=== PATIENT | male | born 1945 | race Caucasian/White ===

== ENCOUNTER 2017-08-08 02:38 | Inpatient (IN) | payer OTHER ==
[~2017-08-08] VITALS: Ht 172.7 cm; Wt 88.5 kg
[2017-08-08 03:16] LABS: ABSOLUTE BASOPHIL COUNT 0 /CUMM (0.0-0.2); ABSOLUTE EOSINOPHIL COUNT 0 /CUMM (0.0-0.7); ABSOLUTE GRANULOCYTE CT 14.6 /CUMM (1.4-6.5); ABSOLUTE LYMPH COUNT 1.1 /CUMM (1.2-3.4); BASOPHIL % 0.2 % (0.0-2.0); EOSINOPHIL % 0.1 % (0-5); HEMATOCRIT 41.5 % (42-52); MEAN CORPUSCULAR HGB 32.5 PG (27.0-31.0); MEAN CORPUSCULAR VOLUME 95.3 FL (80.0-94.0); MEAN PLATELET VOLUME 7.6 FL (7.4-10.4); PLATELET COUNT 194 /CUMM (130-400); RBC DISTRIBUTION WIDTH 13.4 % (11.5-14.5); RED BLOOD CELL CT 4.36 /CUMM (4.70-6.10); WHITE BLOOD CELL COUNT 16.8 /CUMM (4.8-10.8)
[2017-08-08 03:18] LABS: GRANULOCYTE % 87.2 % (42.2-75.2)
[2017-08-08] MEDS ORDERED: LISINOPRIL20 M1 PO (03:19)
[2017-08-08] MEDS ORDERED: CRESTOR20 M2 PO (03:20)
--- NOTE | 2017-08-08 03:53 | RADIOLOGY REPORT ---
EXAMINATION: XR CHEST CLINICAL INFORMATION: Shaking chills, fever, cough COMPARISON: 01/22/2014 TECHNIQUE: 2 views of the chest were obtained. FINDINGS: The lungs are clear with no focal consolidation. No evidence of pneumothorax, pulmonary edema, or pleural effusions. The cardiomediastinal silhouette is unremarkable. No acute osseous findings. IMPRESSION: No acute cardiopulmonary findings.
--- NOTE | 2017-08-08 04:09 | ED GI/GU/ABDOMINAL COMPLAINT ---
History of Present Illness General Chief Complaint: General Adult Stated Complaint: BIBA, FEVER, DIARRHEA Source: patient, old records, friend Exam Limitations: no limitations Vital Signs & Intake/Output Vital Signs & Intake/Output Vital Signs Date Time Temp Pulse Resp B/P B/P Pulse O2 O2 Flow FiO2 Mean Ox Delivery Rate 08/08 0529 98.1 92 16 111/63 97 Room Air Room Air 08/08 0427 84 90/52 08/08 0346 82/50 08/08 0251 98.4 86 18 88/40 94 Allergies Coded Allergies: NO KNOWN ALLERGIES (03/05/17) Reconcile Medications Lisinopril 20 MG TABLET 1 TAB PO DAILY HTN (Reported) Rosuvastatin Calcium (Crestor) 20 MG TABLET 1 TAB PO DAILY CHOLESTEROL ( Reported) Triage Note: 72YO MALE TO [facility] VIA AMB FROM HOME W/CO FEVER, CHILLS DIARRHEA LAST FEW DAYS. RECENTLY TRAVELED TO [place], RETD HOME ON 07/22, DXED W/BRONCHITIS, PLACED ON AMOXICILLIN AND AFTER TAKING IT FOR 5 DAYS DIARRHEA BEGAN. Triage Nurses Notes Reviewed? yes Onset: Last week Duration: day(s):, constant, continues in ED, getting worse Timing: recent history Quality/Severity: aching, moderate, vomiting Location: generalized abdomen Radiation: no radiation Activities at Onset: rest Prior Abdominal Problems: none Past Sexual History: Unobtainable at this time Modifying Factors: Worsens With: eating. Associated Symptoms: abdominal pain, diarrhea, fever/chills, loss of appetite, nausea/vomiting HPI: About 2 weeks prior to admission patient returned from trip from [place] with bronchitis requiring antibiotics. He was prescribed Augmentin and developed diarrhea. Antibiotic was changed to amoxicillin. 2 days prior to admission he developed progressive loose watery stool anorexia and fatigue. Prior to admission he had shaking chills fever continued loose watery stool nausea anorexia and fatigue. There's been no chest pain cough shortness of breath headache dysuria rash bleeding. Past History Travel History Traveled to [place] past 21 day No Medical History Any Pertinent Medical History? see below for history Neurological: NONE EENT: NONE Cardiovascular: hypertension, hyperlipidemia Respiratory: NONE Gastrointestinal: NONE Hepatic: NONE Renal: NONE Musculoskeletal: NONE Psychiatric: NONE Endocrine: NONE Surgical History Surgical History: non-contributory Psychosocial History What is your primary language Bulgarian Tobacco Use: Never used Family History Hx Contributory? No Review of Systems Review of Systems Constitutional: Reports: see HPI, chills, fever, malaise, weakness. EENTM: Reports: no symptoms. Respiratory: Reports: no symptoms. Cardiovascular: Reports: no symptoms. GI: Reports: see HPI, abdominal pain, diarrhea, nausea. Genitourinary: Reports: no symptoms. Musculoskeletal: Reports: no symptoms. Skin: Reports: no symptoms. Neurological/Psychological: Reports: no symptoms. Hematologic/Endocrine: Reports: no symptoms. Immunologic/Allergic: Reports: no symptoms. All Other Systems: Reviewed and Negative Physical Exam Physical Exam General Appearance: well developed/nourished, alert, awake, anxious, severe distress Head: atraumatic, normal appearance Eyes: Bilateral: normal appearance, PERRL, EOMI, normal inspection. Ears, Nose, Throat, Mouth: dry mucous membranes Neck: normal inspection, supple, full range of motion, normal alignment Respiratory: chest non-tender, no respiratory distress, quiet respiration, rales Cardiovascular: regular rate/rhythm, normal peripheral pulses, tachycardia, norml femoral pulses equa Peripheral Pulses: 4+ carotid (R), 4+ carotid (L) Gastrointestinal: soft, non-tender, no organomegaly, abnormal bowel sounds Male Genitals: normal genitalia Back: normal inspection, normal range of motion, no vertebral tenderness Extremities: normal range of motion, no ligament instability Neurologic/Psych: no motor/sensory deficits, awake, alert, oriented x 3, normal gait, 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 No Sepsis Present: No Sepsis Focused Exam Completed? No Progress Differential Diagnosis: biliary colic, diverticulitis, gastritis, UTI/pyelo Plan of Care: Orders Procedure Date/time Status MAGNESIUM 08/09 0600 Active CBC WITHOUT DIFFERENTIAL 08/09 0600 Active CALCIUM 08/09 0600 Active BASIC ELECTROLYTES PLUS BUN&CR 08/09 0600 Active ALBUMIN 08/09 0600 Active Full Liquid Diet 08/08 B Active Add-on Test (ER Only) 08/08 0611 Active Add-on Test (ER Only) 08/08 0528 Active Pathway - chart 08/08 0503 Active House Staff 08/08 0503 Active Code Status 08/08 0503 Active Intake & Output 08/08 0443 Active Patient Data 08/08 0434 Active OXYGEN SETUP (GEN) 08/08 0428 Active Saline Lock 08/08 0428 Active Admit to inpatient 08/08 0428 Active Vital Signs 08/09 427 Active Activity/Ambulation 08/09 427 Active Code Status 08/09 427 Complete STOOL: R/O YERSINIA 08/08 0300 Active STOOL:R/O VIBRIO 08/08 0300 Active CULTURE,STOOL 08/08 0300 Active C.DIFFICILE 08/08 0300 Active BLOOD CULTURE 08/08 0300 Active URINALYSIS 08/08 0300 Complete PHOSPHORUS 08/08 0300 Complete MAGNESIUM 08/08 0300 Complete LACTIC ACID 08/08 0300 Complete COMPREHENSIVE METABOLIC PANEL 08/08 0300 Complete CBC WITHOUT DIFFERENTIAL 08/08 0300 Complete EKG 08/08 0252 Active VTE Mechanical Prophylaxis 08/08 UNK Active Current Medications Sig/Stefano Start time Last Medication Dose Stop Time Status Admin Metronidazole 500 MG Q8H 08/08 1300 AC (Flagyl) N/A 1 UNIT (No Carrier) Enoxaparin Sodium 40 MG DAILY 08/08 0900 AC (Lovenox) Magnesium Sulfate 1 GM Q2H 08/08 0615 AC 08/08 (Mag Sulfate in D5) 08/08 1014 0655 Dextrose/Water 100 ML (D5W) Vancomycin HCl 500 MG Q6 08/08 0600 AC 08/08 0540 Lactated Ringer's 1,000 ML Q10H 08/08 0530 AC 08/08 (Lactated Ringers) 08/08 1029 0630 Laboratory Tests 08/08/17 0600: Lactic Acid Cancelled 08/08/17 0451: Urinalysis LIGHT H, Urine Color YEL, Urine Clarity CLEAR, Urine pH 7.0, Ur Specific Mcfaddin <= 1.005, Urine Protein TRACE H, Urine Ketones NEG, Urine Nitrite NEG, Urine Bilirubin NEG, Urine Urobilinogen 0.2, Ur Leukocyte Esterase NEG, Ur Microscopic SEDIMENT EXAMINED, Urine WBC RARE, Ur Epithelial Cells RARE, Urine Bacteria RARE H, Hyaline Casts RARE H, Urine Hemoglobin NEG, Urine Glucose NEG 08/08/17 0300: Anion Gap 14, Estimated GFR > 60, BUN/Creatinine Ratio 14.0, Glucose 141 H, Lactic Acid 1.5, Calcium 7.5 L, Phosphorus 4.2, Magnesium 1.4 L, Total Bilirubin 1.1, AST 19, ALT 37, Alkaline Phosphatase 54, Total Protein 5.6 L, Albumin 3.3 L, Globulin 2.3, Albumin/Globulin Ratio 1.4, CBC w Diff MAN DIFF ORDERED, RBC 4.36 L, MCV 95.3 H, MCH 32.5 H, MCHC 34.0, RDW 13.4, MPV 7.6, Gran % 87.2 H, Lymphocytes % 6.7 L, Monocytes % 5.8, Eosinophils % 0.1, Basophils % 0.2, Absolute Granulocytes 14.6 H, Segmented Neutrophils 88 H, Band Neutrophils 1, Absolute Lymphocytes 1.1 L, Lymphocytes 6 L, Monocytes 4, Absolute Monocytes 1.0 H, Absolute Eosinophils 0, Basophils 1, Absolute Basophils 0, Platelet Estimate ADEQUATE, Polychromasia 1+, Ovalocytes FEW, Fld Total RBCs Counted 100 Microbiology 08/09 435 STOOL: Clostridium difficile Toxin A & B - RECD 08/09 435 STOOL: Vibrio Culture - RECD 08/09 435 STOOL: Yersinia Culture - RECD 08/09 435 STOOL: Stool Culture - RECD 08/08 0310 BLOOD: Blood Culture - RECD 08/08 0300 BLOOD: Blood Culture - RECD Diagnostic Imaging: Viewed by Me: Radiology Read, CT Scan. Discussed w/RAD: Radiology Read, CT Scan. Radiology Impression: MPRESSION: Mild diffusely thick-walled appearance of the colon, suspicious for colitis CXR Impression: no acute abnormality, no infiltrates, normal size heart, normal mediastinum Initial ED EKG: normal axis, normal intervals, normal p-waves, normal QRS complex, normal sinus rhythm, no ST T wave changes Rhythm Strip: normal sinus rhythm Departure Departure Disposition: STILL A PATIENT Condition: Stable Clinical Impression Primary Impression: Colitis Secondary Impressions: Dehydration, Fever Referrals: Lul MURPHY,Fausto Koo (PCP/Family) Departure Forms: Customer Survey General Discharge Information Admission Note Spoke With: Hao Nguyen MD Documentation of Exam: Documentation of any treatments & extenuating circumstances including Concerns Regarding Discharge (functional status, medication knowledge or non-compliance, living conditions, etc.) that warrant an admission rather than observation: IV hydration serial lab exam follow cultures follow stool studies IV antibiotics medication adjustment continuing care discharge planning. Critical Care Note Critical Care Note Critical Care Time: 30-74 min (40)
--- NOTE | 2017-08-08 04:22 | CT SCAN REPORT ---
EXAMINATION: CT ABDOMEN AND PELVIS WITH CONTRAST CLINICAL INFORMATION: Nausea/vomiting/diarrhea, fever, recent antibiotics COMPARISON: None TECHNIQUE: Multidetector volumetric imaging was performed of the abdomen and pelvis following IV administration of 94 mL of Optiray 320 intravenous contrast. Sagittal and coronal reformatted images were obtained on the technologist's workstation. DLP: 377.13 mGy-cm FINDINGS: LUNG BASES: There is mild dependent atelectasis at the lung bases. LIVER, GALLBLADDER, AND BILIARY TREE: The liver is normal in size, shape, and attenuation. No focal hepatic lesion or biliary ductal dilatation is present. The gallbladder is unremarkable with no evidence of radiopaque gallstones, gallbladder wall thickening, or obvious pericholecystic inflammatory changes. PANCREAS: Unremarkable. SPLEEN: Unremarkable. ADRENAL GLANDS: Unremarkable. KIDNEYS AND URETERS: The kidneys are normal in size, shape, and attenuation. No hydronephrosis, hydroureter, or calculi seen. BLADDER: Unremarkable. GASTROINTESTINAL TRACT: The colon has a diffuse, mildly thick-walled appearance which is suspicious for a colitis in the proper clinical setting. Fluid is present within some portions of the colon, without abnormal dilation. There are also multiple nondilated fluid-filled loops of small bowel. The appendix appears collapsed. Trace free fluid is noted in the right lower quadrant. No free air is seen. ABDOMINAL WALL: No significant hernia is appreciated. LYMPH NODES: Normal. VASCULAR: There is atherosclerotic calcification along the aorta. PELVIC VISCERA: Unremarkable. OSSEOUS STRUCTURES: Degenerative changes are noted in the spine. IMPRESSION: Mild diffusely thick-walled appearance of the colon, suspicious for colitis.
--- NOTE | 2017-08-08 04:44 | History & Physical ---
Becky Patel MD 08/08/17 0444: General Information and HPI MD Statement: I have seen and personally examined MARIO COLLADO and documented this H&P. The patient is a 72 year old M who presented with a patient stated chief complaint of DIARRHEA AND ABDOMINAL PAIN Source of Information: patient Exam Limitations: no limitations History of Present Illness: This is a 72-year-old male with a past medical history significant for hypertension and hyperlipidemia that comes to see us in for complaints of abdominal pain and uncontrollable diarrhea after a recent trip to [place]. The patient states that upon return from [place] on July 22, he developed symptoms of bronchitis, and saw his PCP who started him on Augmentin on July 27. The patient took the antibiotic for 5 days but at that time developed watery diarrhea so the antibiotic was stopped on August 01. Unfortunately the diarrhea continued to worsen to the point where he was having episodes every 45 minutes with associated cramps and a question of bloody diarrhea as well. He also had a fever up to 102.5, chills, rigors, lethargy, weakness. The patient's oral intake decreased as well and he has noted not eating anything for the past couple days. The patient denies eating any "street food" and [place] but does admit to eating salads. Other than that he stuck to only bottled water. He denies having any diarrhea while in [place]. The patient had malaria and typhoid prophylaxis for this trip. The patient has been taking antidiarrheals, most recent dosage was the night of admission. The patient has a history of hypertension and has continued to take his blood pressure medications. Allergies/Medications Allergies: Coded Allergies: NO KNOWN ALLERGIES (03/05/17) Home Med list Lisinopril 20 MG TABLET 1 TAB PO DAILY HTN (Reported) Rosuvastatin Calcium (Crestor) 20 MG TABLET 1 TAB PO DAILY CHOLESTEROL ( Reported) Past History Travel History Traveled to [place] past 21 day No Medical History Neurological: NONE EENT: NONE Cardiovascular: hypertension, hyperlipidemia Respiratory: NONE Gastrointestinal: NONE Hepatic: NONE Renal: NONE Musculoskeletal: NONE Psychiatric: NONE Endocrine: NONE Surgical History Surgical History: non-contributory Past Family/Social History Sexual History Past Sexual History Unobtainable at this time Review of Systems Review of Systems Constitutional: Reports: chills, fever, weakness. EENTM: Reports: no symptoms. Cardiovascular: Reports: no symptoms. Respiratory: Reports: no symptoms. GI: Reports: abdominal pain, bloating, diarrhea. Genitourinary: Reports: no symptoms. Musculoskeletal: Reports: no symptoms. Skin: Reports: no symptoms. Neurological/Psychological: Reports: no symptoms. Exam & Diagnostic Data Last 24 Hrs of Vital Signs/I&O Vital Signs Date Time Temp Pulse Resp B/P B/P Pulse O2 O2 Flow FiO2 Mean Ox Delivery Rate 08/08 0529 98.1 92 16 111/63 97 Room Air Room Air 08/08 0427 84 90/52 08/08 0346 82/50 08/08 0251 98.4 86 18 88/40 94 Intake & Output 08/08 0800 08/08 0000 08/07 1600 Intake Total 2000 Output Total 160 Balance 1840 Intake, IV 2000 Number 1 Bowel Movements Output, Urine 160 Patient 190 lb Weight Physical Exam General Appearance Alert, Oriented X3, Cooperative, No Acute Distress Skin No Rashes, No Breakdown, No Significant Lesion Skin Temp/Moisture Exam: Warm/Dry Sepsis Skin Exam (color): Normal for Ethnicity HEENT Atraumatic, EOMI, Mucous Membr. moist/pink Cardiovascular Regular Rate, Normal S1, Normal S2, No Murmurs Lungs Clear to Auscultation, Normal Air Movement Abdomen Normal Bowel Sounds, Soft, No Masses, left-sided abdominal pain on palpation Neurological Normal Speech Extremities No Clubbing, No Edema, Normal Pulses Vascular Normal Pulses, Pulses Symmetrical Assessment/Plan Assessment: This is a 72-year-old male with a past medical history significant for hypertension and hyperlipidemia that comes to see us in for complaints of abdominal pain and uncontrollable diarrhea after a recent trip to [place]. Patient was recently treated for bronchitis with Augmentin. He admits to eating salad on his trip. He admits to taking antidiarrheals up until day of admission. In the ED, vital signs temperature 98.4, pulse rate 86, respiratory rate 18, blood pressure 80/40, 94% oxygen saturation on room air. The patient did admit to temperature at home of 102.5. WBC was found to be 16.8 without bandemia, normal hemoglobin, normal platelet count, normal chem panel, normal lactic acid of 1.5, decreased calcium of 8.1, corrected, normal liver function tests, normal UA. CT abdomen showed mild diffusely thick-walled appearance of the colon, suspicious for colitis. Clostridium difficile diarrhea is high in the list of differentials secondary to patient's recent antibiotic use and CT abdomen showing suspicion for colitis. Patient may also very well have traveler's diarrhea as he admits to eating salad in [place]. With traveler's diarrhea, WBC may be elevated or normal. Patient was found to be septic as he was tachycardic, with an elevated white blood cell count, and a report of a temperature at home. Suspected source is colitis. Patient will be admitted to the Gen. medical floors for evaluation and treatment of the followin. Sepsis likely secondary to C. difficile colitis secondary to to antibiotic use 2. Hypertension and hyperlipidemia 3. Mild hypocalcemia Plan Vitals every 4 hours We will start the patient on oral vancomycin 500 mg every 6 hours and IV metronidazole 500 mg every 8 hours. Patient was given 3 L of normal saline in the ED, we will continue with lactated Ringer's at a rate of 200 mL per hour. Phosphate and magnesium levels Full liquid diet and advance as tolerated Stool cultures for ova and parasites, Yersinia, vibrio, C. difficile toxin, blood cultures Hold all antihypertensives/cholesterol medications Patient was noted to have a mild hypocalcemia, corrected level is 8.1. Vitamin D level. Full liquid diet DVT prophylaxis with Alps and Lovenox The patient is full code As Ranked By This Provider Problem List: 1. C. difficile colitis Core Measures/Misc (11/11) Acute Coronary Syndrome ACS Diagnosis: No Congestive Heart Failure Congestive Heart Failure Diagnosis No Cerebrovascular Accident CVA/TIA Diagnosis: No VTE (View Protocol) VTE Risk Factors Acute Medical Illness No Mechanical VTE Prophylaxis d/t N/A MechProphylax Ordered No VTE Pharm Prophylaxis d/t NA PharmProphylax ordered Sepsis (View protocol) Sepsis Present: Yes If YES complete Sepsis Event Note If YES complete Sepsis Event Note Hao Nguyen 08/08/17 0545: Core Measures/Misc (11/11) Sepsis (View protocol) If YES complete Sepsis Event Note If YES complete Sepsis Event Note Attending MD Review Statement Attending Statement Attending MD Statement: examined this patient, discuss w/resident/PA/PAST DUE ACCOUNTS CLERK, agreed w/resident/PA/PAST DUE ACCOUNTS CLERK, discussed with family, reviewed EMR data (avail), reviewed images, amended to note Attending Assessment/Plan: CC: Diarrhea PMH: HTN, HLD Patient came to ER for several episodes of soft and watery stools mixed with blood associated with crampy abdominal pain. Patient's symptoms started approximately a week back, initially for a day he had several watery stools which got better as soft stools but last 2 days it was worse again. Patient recently went to [place] and after coming back he developed cough and bronchitis for which he had taken Augmentin. He completed 5/10 day course of Augmentin when this diarrhea developed. Today patient also was lightheaded, especially with change in position. He had fever of 102.5 with chills so he decided to come to hospital. He has some residual cough but denies any chest pain or chest tightness, otherwise complete ROS unremarkable. Patient denied eating street food in [place]. He had similar episode of diarrhea approximately 20 years back, it was C. difficile. Patient took his antihypertensives tonight. Patient also took antidiarrheal today. Vitals: Temperature 98.4, pulse 86, RR 18, blood pressure 88/40 on arrival improved to 111/63, saturating 94% on room air. On exam: A O 3, cooperative, no acute distress, neck supple, JVD normal, no lymphadenopathy, mucosa extremely dry, no focal neurological deficit, no dependent edema, no obvious skin rashes or inflammation CVS: S1-S2, RRR. RS: Clear to auscultate bilaterally. Abdomen: Soft, mild tenderness in left lower quadrant, no guarding or rigidity, ND, bowel sounds present. Labs are significant for leukocytosis of 16.8 with left shift, 1 band, 0 eosinophils. Mildly acidotic with bicarbonate of 21, creatinine 1.0, BUN 14, mucosa 141 CXR: No acute cardiopulmonary findings. CT abdomen and pelvis with IV contrast: Mild diffusely thick-walled appearance of the colon, suspicious for colitis. Assessment and plan 72-year-old male with past medical history significant for HTN, HLD presented in ER for diarrhea since last 7 days, started after 5 days of antibiotic. Patient was on antibiotic for bronchitis which is much better but diarrhea was progressively worsening, today he had bowel movements every 45 min to an hour with crampy abdominal pain and associated with blood in stool. He had fever of 102.5 at home associated with chills. On examination there is mild tenderness on left lower quadrant and extremely dry mucosa. Patient was hypotensive on arrival at 88/40 improved with 3 L normal saline up to 111/63. Orthostatic negative. Patient took his lisinopril this evening it could be contributing factor along with significant hypovolemia secondary to diarrhea. CT scan confirms the finding of diffuse colitis. Given his recent antibiotic use, history of C. difficile in the past (20 years back), this appears more likely C. difficile colitis. Given his recent travel overseas infectious etiologies should be excluded as well. We will empirically cover with IV metronidazole and by mouth vancomycin given his severe C. difficile. Patient took antidiarrheal before coming to hospital thus he should be monitored closely for any complication. + Severe diarrhea: Suspected C. difficile colitis + Hypovolemia secondary to diarrhea + Transient hypotension secondary to hypovolemia + History of HTN, HLD - Admit to general medicine - Continue aggressive hydration with Ringer's lactate 200 mL per hour for one and half liter more after completion of 3 L of normal saline - Hold antihypertensives - Follow-up C. difficile, stool cultures - Replete electrolytes - Discussed at length with patient and Dr. Mccarty who is accompanying patient. Giuseppe MURPHY,Ismeil 08/08/17 0559: Core Measures/Misc (11/11) Sepsis (View protocol) If YES complete Sepsis Event Note If YES complete Sepsis Event Note Resident Review Statement Resident Statement: examined this patient, discussed with chief of internal medicine, reviewed images Other Findings: HPI: 72/M with PMHx of HTN & HLD on lisinopril and rosuvastatin who presented for abdominal pain and diarrhea. The patient came back from a trip to [place] on 07/22 , he developed bronchitis for which she was started on Augmentin on 07/27. After 5 days of antibiotic he developed diarrhea and abdominal pain, initially antibiotic was presumed to be the cause of diarrhea so has stopped on 08/01. The diarrhea did not improve, he reports one episode of diarrhea every hour, his diarrhea started to be associated with significant diffuse abdominal pain, fever up to 102 at home, and chills. He also reports one episode of bloody diarrhea yesterday. He continued taking anti-hypertensive medication. He also took antidiarrheal medications before presenting to the hospital. Vitals:Tmax98.4, HR 86, BP 88/40 improved to 111/63 after 3000 ml of NS, saturating well on room air. Labs: Leukocytosis up to 16.8, K 3.8, Mg 1.4, glucose 141, corrected calcium 8.1. RFT, LFT, lactic acid were WNL. Imaging: Mild diffusely thick-walled appearance of the colon, suspicious for colitis. Assessment: Patient presented with diarrhea, 102 fever at home, abdominal pain after recent antibiotic use. He has leukocytosis >[id number] abd suspicious for colitis. This suggests fulminant C. diff. Given that patient recently returned from a [place] trip we will consider other infectious cause, we will send for stool cultures. Patient was initially hypotensive improve after 3 boluses IV normal saline. Currently he is hemodynamically stable and can be monitored on [facility]. Plan #Diarrhea/abdominal pain most likely secondary C. difficile * Admit to general medicine floor * Vitals every 4 hours for 24 hour * Oral vancomycin 500 mg every 6 * IV metronidazole 500 mg every 8 * Hydrate with Ringer lactate @ 200 ml/h one bag * Pending C. difficile toxin, Vibrio,yersinia, stool cx and blood cx #Hypertension/hyperlipidemia * Hold home medication until diarrhea resolved #Mild hypocalcemia(corrected)/hypomagnesemia * Hypomagnesemia most likely secondary to diarrhea * Mild hypocalcemia most likely secondary to hypomagnesemia * We will replete magnesium with IV Mg * I anticipate a drop in potassium after lisinopril effect wear off. * Check BEP, Mg+, Ca++ in 24 hours * If persist hypocalcemia, check Vit D & PTH. -Regular diet -DVT PPx: ALPS & Lovenox -FC
--- NOTE | 2017-08-08 05:47 | Admission Certification ---
Admission Certification Certification Statement - As attending physician, I certify that at the time of - admission, based on clinical presentation, severity of - symptoms, need for further diagnostic testing and - therapeutic interventions, and risk of adverse outcomes - without in-hospital treatment, in my clinical assessment, - this patient requires an acute hospital stay for a minimum - of two nights or longer. I have also considered psychsocial - factors such as support system, advanced age, financial - issues, cognitive issues, and failed out-patient treatments, - past re-admission history, safety of patient, and lack of - compliance as applicable. Specific rationale supporting this admission is: Severe diarrhea, hypovolemia, hypotension
[2017-08-08 08:23] VITALS: BP 110/70
[2017-08-08 13:15] VITALS: BP 100/60
--- NOTE | 2017-08-08 15:16 | PN- Att Addend ---
Attending Addendum Attending Brief Note Laboratory Tests 08/08/17 0600: Lactic Acid Cancelled 08/08/17 0451: Urinalysis LIGHT H, Urine Color YEL, Urine Clarity CLEAR, Urine pH 7.0, Ur Specific Kinta <= 1.005, Urine Protein TRACE H, Urine Ketones NEG, Urine Nitrite NEG, Urine Bilirubin NEG, Urine Urobilinogen 0.2, Ur Leukocyte Esterase NEG, Ur Microscopic SEDIMENT EXAMINED, Urine WBC RARE, Ur Epithelial Cells RARE, Urine Bacteria RARE H, Hyaline Casts RARE H, Urine Hemoglobin NEG, Urine Glucose NEG 08/08/17 0300: Anion Gap 14, Estimated GFR > 60, BUN/Creatinine Ratio 14.0, Glucose 141 H, Lactic Acid 1.5, Calcium 7.5 L, Phosphorus 4.2, Magnesium 1.4 L, Total Bilirubin 1.1, AST 19, ALT 37, Alkaline Phosphatase 54, Total Protein 5.6 L, Albumin 3.3 L, Globulin 2.3, Albumin/Globulin Ratio 1.4, CBC w Diff MAN DIFF ORDERED, RBC 4.36 L, MCV 95.3 H, MCH 32.5 H, MCHC 34.0, RDW 13.4, MPV 7.6, Gran % 87.2 H, Lymphocytes % 6.7 L, Monocytes % 5.8, Eosinophils % 0.1, Basophils % 0.2, Absolute Granulocytes 14.6 H, Segmented Neutrophils 88 H, Band Neutrophils 1, Absolute Lymphocytes 1.1 L, Lymphocytes 6 L, Monocytes 4, Absolute Monocytes 1.0 H, Absolute Eosinophils 0, Basophils 1, Absolute Basophils 0, Platelet Estimate ADEQUATE, Polychromasia 1+, Ovalocytes FEW, Fld Total RBCs Counted 100 Vital Signs Date Time Temp Pulse Resp B/P B/P Pulse O2 O2 Flow FiO2 Mean Ox Delivery Rate 08/08 1348 Room Air 08/08 1315 98.5 90 20 100/60 97 08/08 0823 98.5 76 20 110/70 96 08/08 0800 Trach Mask 08/08 0529 98.1 92 16 111/63 97 Room Air Room Air 08/08 0427 84 90/52 08/08 0346 82/50 08/08 0251 98.4 86 18 88/40 94 C. difficile diarrhea-patient admitted with the diarrhea with some fever and chills and white count of 16.8 with 88% neutrophils. Patient C. difficile came back positive. We will continue him on by mouth vancomycin and see how he is doing. If his white count improves and if it is the diarrhea resolves may plan to discharge him on by mouth vancomycin tomorrow. Discussed with patient the care plan.
[2017-08-08 22:20] VITALS: BP 110/60
[2017-08-09 07:08] VITALS: BP 130/78
--- NOTE | 2017-08-09 07:16 | PN- Housestaff ---
Cristian MURPHY,[facility] 08/09/17 0716: Subjective Follow-up For: C.diff Subjective: Patient seen and examined. Reports having multiple episodes of loose watery bowel movements over the course of yesterday evening and this morning. 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 Review of Systems Constitutional: Reports: no symptoms. Objective Last 24 Hrs of Vital Signs/I&O Vital Signs Date Time Temp Pulse Resp B/P B/P Pulse O2 O2 Flow FiO2 Mean Ox Delivery Rate 08/09 0708 97.8 72 20 130/78 95 Room Air 08/08 2220 100.0 88 20 110/60 96 Room Air 08/08 1348 Room Air 08/08 1315 98.5 90 20 100/60 97 08/08 0823 98.5 76 20 110/70 96 08/08 0800 Trach Mask Intake & Output 08/09 0800 08/09 0000 08/08 1600 Intake Total 7480 879 6029 Output Total Balance 8654 209 1748 Intake, IV 1000 250 600 Intake, Oral 360 600 480 Number 5 6 Bowel Movements Patient 195 lb Weight Weight Reported by Patient Measurement Method Physical Exam General Appearance: Alert, Oriented X3, Cooperative, Mild Distress Skin: No Rashes, No Breakdown Skin Temp/Moisture Exam: Warm/Dry Sepsis Skin Exam (color): Normal for Ethnicity HEENT: Atraumatic Cardiovascular: Normal S1, Normal S2, No Murmurs Lungs: Clear to Auscultation, Normal Air Movement Abdomen: Soft, No Tenderness Neurological: Normal Speech Extremities: No Edema Last 24 Hrs of Lab/Fidel Results Last 24 Hrs of Labs/Mics: Laboratory Tests 08/09/17 0712: Anion Gap 10, Estimated GFR > 60, BUN/Creatinine Ratio 11.3, Calcium 6.6 L, Magnesium 1.9, Albumin 2.7 L, CBC w Diff NO MAN DIFF REQ, RBC 3.62 L, MCV 95.1 H, MCH 32.2 H, MCHC 33.9, RDW 14.0, MPV 8.1, Gran % 70.1, Lymphocytes % 19.8 L, Monocytes % 8.1, Eosinophils % 1.9, Basophils % 0.1, Absolute Granulocytes 7.1 H, Absolute Lymphocytes 2.0, Absolute Monocytes 0.8 H, Absolute Eosinophils 0.2, Absolute Basophils 0 Assessment/Plan Assessment: 72-year-old male with a past medical history significant for hypertension and hyperlipidemia that comes to see us in for complaints of abdominal pain and uncontrollable diarrhea after a recent trip to [place]. Assessment: 1. C.Diff Diarrhea 2. History of Hypertension and Hyperlipidemia Plan: * His stool culture was positive for C.diff but negative for vibrio and yersinia * Giardia and Shiga - pending. * Continue PO Vancomycin 125mg q6 for now. Can increase the dose if diarrhea fails to improve. * His white count has normalized today but he is still experiencing loose bowel movments. * Follow Blood cultures * His corrected Ca is low - check Vit D and PTH levels. * Diet: Full liquid diet. Can be upgraded if tolerating PO intake. * DVT Prophylaxis: SC Lovenox * Code: Full Code On the weekend Dr Khan will be covering on 08/[address] Emmanuel on 08/11 Problem List: 1. C. difficile colitis Pain Ratin Pain Location: none Pain Goal: Remain pain free Pain Plan: none Tomorrow's Labs & Rationales: CBC, BEP Adelfo Ivan 08/09/17 1344: Attending MD Review Statement Attending Statement Attending MD Statement: examined this patient, discuss w/resident/PA/HARDWARE DESIGN ENGINEER, agreed w/resident/PA/HARDWARE DESIGN ENGINEER, reviewed EMR data (avail), discussed with nursing, discussed with case mgmt Attending Assessment/Plan: C diff colitis- wbc improving but pt cont to have diarrhea. will cont with po vancomycin for now and if diarrhea not gettign better will or wbc getting worse will consdier increasing the dose of vancomycin. if diarrhea improves then we will plan to dc him over the weekend. started on iv fuids for hydration. d/w pt the care plan.
[2017-08-09 07:47] LABS: ABSOLUTE BASOPHIL COUNT 0 /CUMM (0.0-0.2); ABSOLUTE EOSINOPHIL COUNT 0.2 /CUMM (0.0-0.7); GRANULOCYTE % 70.1 % (42.2-75.2)
[2017-08-09 08:08] LABS: ABSOLUTE GRANULOCYTE CT 7.1 /CUMM (1.4-6.5); ABSOLUTE MONOCYTE COUNT 0.8 /CUMM (0.10-0.60); BASOPHIL % 0.1 % (0.0-2.0); EOSINOPHIL % 1.9 % (0-5); MEAN CORPUSCULAR HGB 32.2 PG (27.0-31.0); MEAN CORPUSCULAR HGB CONC 33.9 G/DL (33.0-37.0); MEAN CORPUSCULAR VOLUME 95.1 FL (80.0-94.0); MEAN PLATELET VOLUME 8.1 FL (7.4-10.4); PLATELET COUNT 175 /CUMM (130-400); RED BLOOD CELL CT 3.62 /CUMM (4.70-6.10); WHITE BLOOD CELL COUNT 10.1 /CUMM (4.8-10.8)
[2017-08-09 08:13] LABS: HEMATOCRIT 34.4 % (42-52)
--- NOTE | 2017-08-09 08:35 | Patient Discharge Instructions ---
Discharge Instructions General Discharge Information You were seen/treated for: C.diff diarrhea Special Instructions: Please follow up with your PCP within one week of discharge. Diet Continue normal diet: Yes Activity Full Activity/No Limits: Yes Acute Coronary Syndrome Inclusion Criteria At DC or during hospital stay patient has or had the following: ACS DIAGNOSIS No Discharge Core Measures Meds if any: Prescribed or Continued at Discharge Meds if any: NOT Prescribed or Continued at Discharge Congestive Heart Failure Inclusion Criteria At DC or during hospital stay patient has or had the following: CHF DIAGNOSIS No Discharge Core Measures Meds if any: Prescribed or Continued at Discharge Meds if any: NOT Prescribed or Continued at Discharge Cerebrovascular accident Inclusion Criteria At DC or during hospital stay patient has or had the following: CVA/TIA Diagnosis No Discharge Core Measures Meds if any: Prescribed or Continued at Discharge Meds if any: NOT Prescribed or Continued at Discharge Venous thromboembolism Inclusion Criteria VTE Diagnosis No VTE Type NONE VTE Confirmed by (Test) NONE Discharge Core Measures - Per Current guidelines, there needs to be overlap - treatment for the first 5 days of Warfarin therapy. - If discharged on Warfarin prior to 5 days of - overlap therapy, the patient will need to be - assessed for post discharge needs including - *Post discharge parental anticoagulation - *Warfarin and/or parental anticoagulation education - *Follow up date to check INR post discharge At least 5 days overlap therapy as Inpatient No Meds if any: Prescribed or Continued at Discharge Note: Overlap Therapy is Warfarin and Anticoagulant Meds if any: NOT Prescribed or Continued at Discharge
--- NOTE | 2017-08-09 08:39 | Discharge Summary ---
Visit Information Visit Dates Admission Date: 08/08/17 Hospital Course Allergies: Coded Allergies: NO KNOWN ALLERGIES (03/05/17) Discharge Instructions Medications at Discharge Discharge Medications: Continue taking these medications: Lisinopril (Lisinopril) 20 MG TABLET 1 Tablet ORAL DAILY Qty = 90 Rosuvastatin Calcium (Crestor) 20 MG TABLET 1 Tablet ORAL DAILY Qty = 90
[2017-08-09] MEDS ORDERED: VANCOMYCIN HCL125 MG PO (11:37)
[2017-08-09] MEDS ORDERED: VITAMIN D1000 UNI1 PO (13:44)
[2017-08-09 14:51] VITALS: BP 159/86
[2017-08-09 22:08] VITALS: BP 154/95
--- NOTE | 2017-08-10 06:03 | PN- Housestaff ---
See Addendum Subjective Follow-up For: C DIFF Subjective: Saw pt at bedside this AM. He states that he feels better and would like to try solid food. His BM are less urgent and less frequent. He did wake up at 3 am to use the bathroom and also right after breakfast. Review of Systems Constitutional: Reports: weakness. Denies: chills, diaphoresis, fever. EENTM: Reports: no symptoms. Cardiovascular: Denies: chest pain, palpitations. Respiratory: Denies: short of breath. Gastrointestinal: Reports: abdominal pain, diarrhea, distention. Denies: vomiting. Genitourinary: Reports: no symptoms. Musculoskeletal: Reports: no symptoms. Objective Last 24 Hrs of Vital Signs/I&O Vital Signs Date Time Temp Pulse Resp B/P B/P Pulse O2 O2 Flow FiO2 Mean Ox Delivery Rate 08/09 2208 98.7 69 18 154/95 97 08/09 1451 97.9 63 20 159/86 94 Room Air 08/09 0800 Room Air 08/09 0708 97.8 72 20 130/78 95 Room Air Intake & Output 08/10 0800 08/10 0000 08/09 1600 Intake Total 700 400 585 Output Total Balance 700 400 585 Intake, IV 600 300 225 Intake, Oral 100 100 360 Number 1 Bowel Movements Physical Exam General Appearance: Alert, Oriented X3, Cooperative Skin: No Significant Lesion HEENT: Atraumatic, PERRLA Neck: Supple Cardiovascular: Regular Rate, Normal S1, Normal S2, No Murmurs Lungs: Normal Air Movement Abdomen: Soft, No Tenderness Extremities: No Edema Assessment/Plan Assessment: 72-year-old male with a past medical history significant for hypertension and hyperlipidemia that comes to see us in for complaints of abdominal pain and uncontrollable diarrhea with recent abx treatment for bronchitis and now found to have c.diff. Plan: C.diff: * His stool culture was positive for C.diff but negative for vibrio and yersinia * Giardia and Shiga - pending. * Continue PO Vancomycin 125mg q6 for now. * Follow Blood cultures * advance diet * D/C IVF Hypocalcemia: * His corrected Ca is low but Vit D lvl 25 and PTH 22 * Started on Vit D supplement Anemia: Yesterday Hb dropped to 11, likely due to dilution. * Con't monitor Diet: Full liquid diet. Can be upgraded if tolerating PO intake. DVT Prophylaxis: SC Lovenox Code: Full Code Problem List: 1. C. difficile colitis Pain Ratin Pain Location: none Pain Goal: Remain pain free Pain Plan: none Tomorrow's Labs & Rationales: cbc bep
[2017-08-10 06:47] VITALS: BP 150/88
[2017-08-10 08:52] LABS: ABSOLUTE BASOPHIL COUNT 0 /CUMM (0.0-0.2); ABSOLUTE EOSINOPHIL COUNT 0.3 /CUMM (0.0-0.7); ABSOLUTE GRANULOCYTE CT 4.7 /CUMM (1.4-6.5); ABSOLUTE LYMPH COUNT 1.6 /CUMM (1.2-3.4); ABSOLUTE MONOCYTE COUNT 0.7 /CUMM (0.10-0.60); BASOPHIL % 0.3 % (0.0-2.0); EOSINOPHIL % 4.2 % (0-5); HEMATOCRIT 36.4 % (42-52); MEAN CORPUSCULAR HGB 32.5 PG (27.0-31.0); MEAN CORPUSCULAR HGB CONC 34.3 G/DL (33.0-37.0); PLATELET COUNT 193 /CUMM (130-400); RBC DISTRIBUTION WIDTH 13.8 % (11.5-14.5); RED BLOOD CELL CT 3.83 /CUMM (4.70-6.10); WHITE BLOOD CELL COUNT 7.3 /CUMM (4.8-10.8)
[2017-08-10 14:16] VITALS: BP 135/81
[2017-08-10 23:03] VITALS: BP 152/70
[2017-08-11 06:55] VITALS: BP 162/88
[2017-08-11 08:07] LABS: ABSOLUTE BASOPHIL COUNT 0 /CUMM (0.0-0.2); ABSOLUTE EOSINOPHIL COUNT 0.2 /CUMM (0.0-0.7); ABSOLUTE GRANULOCYTE CT 3.5 /CUMM (1.4-6.5); ABSOLUTE LYMPH COUNT 1.7 /CUMM (1.2-3.4); ABSOLUTE MONOCYTE COUNT 0.8 /CUMM (0.10-0.60); BASOPHIL % 0.3 % (0.0-2.0); EOSINOPHIL % 3.9 % (0-5); HEMATOCRIT 37.3 % (42-52); MEAN CORPUSCULAR HGB 32.5 PG (27.0-31.0); MEAN CORPUSCULAR HGB CONC 34.3 G/DL (33.0-37.0); MEAN CORPUSCULAR VOLUME 94.9 FL (80.0-94.0); MEAN PLATELET VOLUME 7.7 FL (7.4-10.4); PLATELET COUNT 219 /CUMM (130-400); RBC DISTRIBUTION WIDTH 13.4 % (11.5-14.5); RED BLOOD CELL CT 3.93 /CUMM (4.70-6.10); WHITE BLOOD CELL COUNT 6.3 /CUMM (4.8-10.8)
--- NOTE | 2017-08-11 09:56 | PN- Housestaff ---
See Addendum Subjective Follow-up For: Clostridium dificile Subjective: Patient was seen and examined today. Reports bowel movements have improved - last bm at 3:30AM. Reports increased urine output. Patient denies any other complaints. Feels ready to go home today. Vancomycin sent to pharmacy and given paper script No acute events overnight. Review of Systems Constitutional: Reports: see HPI. Objective Last 24 Hrs of Vital Signs/I&O Vital Signs Date Time Temp Pulse Resp B/P B/P Pulse O2 O2 Flow FiO2 Mean Ox Delivery Rate 08/11 0655 98.0 76 18 162/88 98 Room Air 08/10 2303 98.6 65 20 152/70 97 Room Air 08/10 1416 98.2 81 20 135/81 100 Intake & Output 08/11 1600 08/11 0800 08/11 0000 Intake Total 100 800 Output Total 3 Balance 100 797 Intake, Oral 100 800 Number 1 Bowel Movements Output, Stool 3 Physical Exam General Appearance: Alert, Cooperative, No Acute Distress HEENT: Atraumatic, Mucous Membr. moist/pink Cardiovascular: Regular Rate, Normal S1, Normal S2 Lungs: Normal Air Movement Abdomen: Normal Bowel Sounds, Soft, No Tenderness Neurological: Normal Gait, Normal Speech Current Medications: Current Medications Sig/Stefano Start time Last Medication Dose Route Stop Time Status Admin Cholecalciferol 1,000 IU DAILY 08/09 1343 08/11 PO 0816 Enoxaparin Sodium 40 MG DAILY 08/08 0900 08/11 [place] 0816 Potassium Chloride 40 MEQ ONCE ONE 08/10 1700 DC 08/10 PO 08/10 1701 1801 Vancomycin HCl 125 MG Q6 08/08 2359 08/11 PO 0602 Zinc Oxide 1 HARPAL BID 08/10 1056 08/11 [facility] 0816 Last 24 Hrs of Lab/Fidel Results Last 24 Hrs of Labs/Mics: Laboratory Tests 08/11/17 0725: Anion Gap 10, Estimated GFR > 60, BUN/Creatinine Ratio 8.8, CBC w Diff NO MAN DIFF REQ, RBC 3.93 L, MCV 94.9 H, MCH 32.5 H, MCHC 34.3, RDW 13.4, MPV 7.7, Gran % 56.0, Lymphocytes % 27.7, Monocytes % 12.1 H, Eosinophils % 3.9, Basophils % 0.3, Absolute Granulocytes 3.5, Absolute Lymphocytes 1.7, Absolute Monocytes 0.8 H, Absolute Eosinophils 0.2, Absolute Basophils 0 Assessment/Plan Assessment: 72-year-old male with a past medical history significant for hypertension and hyperlipidemia that comes to see us in for complaints of abdominal pain and uncontrollable diarrhea with recent abx treatment for bronchitis and now found to have c.diff. Plan: C.diff: * His stool culture was positive for C.diff * Vibrio, Yersina, Giardia and Shiga -negative * Continue PO Vancomycin 125mg q6 for now. Script sent to pharmacy and patient given paper script * Blood cultures - remain negative * advance diet * D/C IVF Hypocalcemia: * His corrected Ca is low but Vit D lvl 25 and PTH 22 * Started on Vit D supplement. Reports he takes daily vitamin D at home. Anemia: Yesterday Hb dropped to 11, likely due to dilution. * Con't monitor Continue home meds: lisinopril and rousuvastatin Diet: Regular diet DVT Prophylaxis: SC Lovenox Code: Full Code Dispo: discharge home today on PO Vancomycin Problem List: 1. C. difficile colitis Pain Ratin Pain Location: n/a Pain Goal: Remain pain free Pain Plan: prn Tomorrow's Labs & Rationales: none - dc home today
== END 2017-08-11 11:41 | DRG 373 ==
LOC: ERH 02:38 → ERHI 04:28 → 2NA 04:28 → ENRESERV 06:28 → ENTRNSPT 07:09 → EDTRNSPT 07:24 → EDTRNSPTSTS 07:24 → 2NA 07:43 → CMPTRNSPT 07:57 → ENPENDDIS 08-11 11:15 → 2NA 08-11 11:41
PROVIDERS: Emergency Medicine; Internal Medicine; Student in an Organized Health Care Education/Training Program
DX: A04.72 Enterocolitis due to Clostridium difficile, not specified as recurrent (principal); E78.5 Hyperlipidemia, unspecified; I10 Essential (primary) hypertension; E86.1 Hypovolemia; E83.51 Hypocalcemia; E83.42 Hypomagnesemia; D64.9 Anemia, unspecified
CPT/HCPCS: 2NAP; 36592; 71046; 74177; 81001; 82436; 87015; 87040; 87045; 87328; 87329; 87899; 87899-59; 93005; 93010; 96361; 96374; 99291; J1650; J2405; J7120